=== PATIENT | male | born 1975 | race Caucasian/White ===

== ENCOUNTER 2019-07-28 18:18 | Inpatient (IN) | payer BC ==
[2019-07-28] MEDS: METOPROLOL TAR 50 MG TAB PO SCH ×2 (18:00→22:34)
[2019-07-28] MEDS ORDERED: ASPIRIN 81 MG CHEWABLE TABLET ONE (18:56)
[2019-07-28] MEDS ORDERED: NA CHLORIDE 0.9% 1,000 ML ONE (18:57)
[2019-07-28] MEDS ORDERED: METOPROLOL TAR 50 MG TAB ONE (19:03)
[2019-07-28 19:04] LABS: Absolute Lymphocytes (CBC) 1.4 K/uL (0.7-4.9); Basophils % 0.6 % (0-1.3); Hematocrit 43.4 % (39.6-49.0); Lymphocytes % 19.9 % (15.3-44.8); RBC Red Blood Cell Count 5.03 M/uL (4.33-5.43)
[2019-07-28] MEDS ORDERED: FAMOTIDINE 20 MG/2 ML VIAL IV ONE (19:04)
[2019-07-28] MEDS ORDERED: ENOXAPARIN 100 MG/ML SYR SQ ONE (19:04)
[2019-07-28 19:26] LABS: ALT/SGPT 35 U/L (12-78); AST/SGOT 24 U/L (15-37); Albumin 3.5 g/dL (3.4-5.0); Alkaline Phosphatase 54 U/L (45-117); BUN Blood Urea Nitrogen 16 mg/dL (7-18); Bicarbonate 27 mmol/L (21-32); Bilirubin Direct < 0.1 mg/dL (0-0.2); Bilirubin Total 0.3 mg/dL (0.2-1.0); Lipase 96 U/L (73-393); NT PRO-BNP 43 pg/mL (<125); Potassium 4.5 mmol/L (3.5-5.1); Protein, Total 7.7 g/dL (6.4-8.2); Sodium Level 133 mmol/L (136-145); Troponin (Emerg Dept Use Only) 0.34 ng/mL (0.0-0.045)
[2019-07-28 19:28] LABS: Glucose Level 475 mg/dL (74-106)
--- NOTE | 2019-07-28 19:36 | ER ---
Nurse's Notes [facility] Name: Foster Perry Age: 44 yrs Sex: Male : 1975 Arrival Date: 07/28/2019 Time: 18:18 Bed 2 Private MD: TERENCE ALVARADO Diagnosis: Non-ST elevation (NSTEMI) myocardial infarction;Type 2 diabetes mellitus-poorly controlled;Essential (primary) hypertension Presentation: 07/27 18:35 Chief complaint: Patient states: CP with SOB began at 0515 today. Coronavirus screen: ll1 Proceed with normal triage. Patient denies a cough. Patient reports shortness of breath or difficulty breathing. Patient denies measured and/or subjective temperature greater than 100.4F prior to today's visit. Patient denies travel on a cruise ship or to a country the [facility] currently lists as an affected area. Patient denies contact with known and/or suspected case of COVID-19. Ebola Screen: Patient denies travel to an Ebola-affected area in the 21 days before illness onset. Initial Sepsis Screen: Does the patient meet any 2 criteria? No. Patient's initial sepsis screen is negative. Does the patient have a suspected source of infection? No. Patient's initial sepsis screen is negative. Risk Assessment: Do you want to hurt yourself or someone else? Patient reports no desire to harm self or others. Onset of symptoms was July 28, 2019. 18:35 Method Of Arrival: Ambulatory ll1 18:35 Acuity: JOES 3 ll1 Historical: - Allergies: 18:37 No Known Allergies; ll1 - PMHx: 18:37 Diabetes - NIDDM; Hypothyroidism; enlarged heart; ll1 - PSHx: 18:37 Shoulder; ll1 - Immunization history:: Adult Immunizations up to date. - Social history:: Smoking status: Patient denies any tobacco usage or history of. Patient uses alcohol, only on a social basis. Patient/guardian denies using street drugs. - Family history:: not pertinent. Screenin:45 Abuse screen: Denies threats or abuse. Nutritional screening: No deficits noted. em Tuberculosis screening: No symptoms or risk factors identified. Fall Risk None identified. Assessment: 18:45 General: Appears in no apparent distress. comfortable, Behavior is calm, cooperative, em appropriate for age, Denies fever. Pain: Complains of pain in chest Pain does not radiate. Pain began. Neuro: Level of Consciousness is awake, alert, obeys commands, Oriented to person, place, time, situation, Appropriate for age. Cardiovascular: Reports chest pain, shortness of breath, Capillary refill < 3 seconds Patient's skin is warm and dry. Rhythm is irregular. Respiratory: Airway is patent Respiratory effort is even, unlabored, Respiratory pattern is regular, symmetrical. GI: Abdomen is flat, Patient currently denies nausea, vomiting. Derm: Skin is intact, is healthy with good turgor, Skin is pink, warm \T\ dry. Musculoskeletal: Capillary refill < 3 seconds, Range of motion: intact in all extremities. 20:07 Reassessment: Pt refused insulin and stated that he has a pump and would control it tl2 himself. Explained to pt about using a sliding scale per the doctors order but he was adamant about using his own pump. MD notified and patient understands risks. 21:00 Reassessment: Patient appears in no apparent distress at this time. Patient and/or tl2 family updated on plan of care and expected duration. Pain level reassessed. Patient is alert, oriented x 3, equal unlabored respirations, skin warm/dry/pink. Patient denies pain at this time. Vital Signs: 18:35 BP 164 / 94; Pulse 87; Resp 18; Temp 98.9; Pulse Ox 99% ; ll1 18:37 Pain 8/10; ll1 18:55 Weight 104.33 kg; em 20:34 BP 146 / 84; Pulse 68; Resp 24; Pulse Ox 100% on R/A; tl2 21:00 BP 135 / 91; Pulse 70; Resp 18; Pulse Ox 100% on R/A; tl2 Vitals: 20:34 Cardiac Rhythm Assessment Sinus rhythm. tl2 ED Course: 18:18 Patient arrived in ED. am2 18:19 TERENCE ALVARADO is Private Physician. am2 18:35 Guilherme Wray MD is Attending Physician. [facility] 18:36 Triage completed. ll1 18:36 Armando Carter, KENIA is Primary Nurse. em 18:37 Arm band placed on Patient placed in an exam room, on a stretcher. ll1 18:45 Patient maintains SpO2 saturation greater than 95% on room air. em 18:46 Patient has correct armband on for positive identification. Bed in low position. Call [facility] light in reach. Side rails up X 1. controller operations and hr manager on. Pulse ox on. NIBP on. 18:46 EKG done, by ED staff, reviewed by Guilherme Wray MD. [facility] 18:50 XRAY Chest (1 view) In Process Unspecified. EDMS 19:01 Initial lab(s) drawn, by dc, sent to lab. Inserted saline lock: 18 gauge in right [facility] antecubital area, using aseptic technique. Blood collected. 19:02 Lipase Sent. [facility] 19:02 Basic Metabolic Panel Sent. [facility] 19:02 CBC with Diff Sent. [facility] 19:02 LFT's Sent. [facility] 19:02 Magnesium Sent. [facility] 19:02 NT PRO-BNP Sent. [facility] 19:02 Troponin (emerg Dept Use Only) Sent. [facility] 19:34 Abbey Reina MD is Hospitalizing Provider. [facility] 21:50 No provider procedures requiring assistance completed. Patient admitted, IV remains in lp1 place. Administered Medications: 18:55 Drug: Aspirin Chewable Tablet 324 mg Route: PO; em 22:18 Follow up: Response: No adverse reaction tl2 19:06 Drug: NS 0.9% 1000 ml Route: IV; Rate: 125 ml/hr; Site: right antecubital; em 19:06 Drug: Lopressor (metoprolol TARTRATE) 50 mg Route: PO; em 22:18 Follow up: Response: No adverse reaction tl2 19:06 Drug: Lovenox 1 mg/kg Route: Sub-Q; Site: left lower abdomen; em 22:18 Follow up: Response: No adverse reaction tl2 19:07 Drug: Pepcid 20 mg Route: IVP; Site: right antecubital; em 22:17 Follow up: Response: No adverse reaction tl2 20:05 Not Given (Patient Refused; See chart): Insulin Regular Human 10 units IVP once tl2 20:05 Drug: PlaVIX 300 mg Route: PO; tl2 22:16 Follow up: Response: No adverse reaction tl2 20:05 Drug: Lopressor 5 mg {Note: HR: 93 BP 154/87.} Route: IVP; Site: left antecubital; tl2 22:16 Follow up: Response: No adverse reaction; Cardiac rhythm changed tl2 20:05 Drug: Lisinopril 10 mg Route: PO; tl2 22:16 Follow up: Response: No adverse reaction tl2 Outcome: 19:35 Decision to Hospitalize by Provider. janna 21:50 Condition: stable lp1 21:50 Instructed on the need for admit. 21:52 Admitted to Med/surg via wheelchair, room 219, with chart, Report called to KENIA Freeman lp1 22:15 Patient left the ED. tl2 Signatures: Dispatcher [employer] Guilherme Hathaway MD MD cha Munoz, Edgar, Marlee Pugh RN, RN RN lp1 Keke Luevano RN RN tl2 Deysi Moreno [facility] Chrissy Boyd Wilma Zimmerman RN RN ll1
--- NOTE | 2019-07-28 19:36 | EDPHYS ---
Physician Documentation [facility] Name: Foster Perry Age: 44 yrs Sex: Male : 1975 Arrival Date: 07/28/2019 Time: 18:18 Bed 2 Private MD: TERENCE ALVARADO ED Physician Guilherme Wray HPI: 07/27 18:48 This 44 yrs old Male presents to ER via Ambulatory with complaints of Chest janna Pain, Possible Cardiac Related. 18:48 The patient or guardian reports chest pain that is located primarily in the substernal janna area. Onset: just prior to arrival. The pain does not radiate. Associated signs and symptoms: Pertinent positives: nausea, shortness of breath. The chest pain is described as a pressure. Duration: The patient or guardian reports a single episode, that is still ongoing, but improving. Modifying factors: The symptoms are alleviated by nothing. the symptoms are aggravated by nothing. Severity of pain: At its worst the pain was moderate in the emergency department the pain is unchanged. The patient has experienced similar episodes in the past, a few times. Historical: - Allergies: 18:37 No Known Allergies; ll1 - PMHx: 18:37 Diabetes - NIDDM; Hypothyroidism; enlarged heart; ll1 - PSHx: 18:37 Shoulder; ll1 - Immunization history:: Adult Immunizations up to date. - Social history:: Smoking status: Patient denies any tobacco usage or history of. Patient uses alcohol, only on a social basis. Patient/guardian denies using street drugs. - Family history:: not pertinent. ROS: 18:48 Constitutional: Negative for fever, chills, and weight loss, Eyes: Negative for injury, janna pain, redness, and discharge, ENT: Negative for injury, pain, and discharge, Neck: Negative for injury, pain, and swelling, Abdomen/GI: Negative for abdominal pain, nausea, vomiting, diarrhea, and constipation, Back: Negative for injury and pain, : Negative for injury, bleeding, discharge, and swelling, MS/Extremity: Negative for injury and deformity, Skin: Negative for injury, rash, and discoloration, Neuro: Negative for headache, weakness, numbness, tingling, and seizure, Psych: Negative for depression, anxiety, suicide ideation, homicidal ideation, and hallucinations, Allergy/Immunology: Negative for hives, rash, and allergies, Endocrine: Negative for neck swelling, polydipsia, polyuria, polyphagia, and marked weight changes, Hematologic/Lymphatic: Negative for swollen nodes, abnormal bleeding, and unusual bruising. 18:48 Cardiovascular: Positive for chest pain. 18:48 Respiratory: Positive for shortness of breath, at rest. Exam: 18:48 Constitutional: This is a well developed, well nourished patient who is awake, alert, janna and in no acute distress. Head/Face: Normocephalic, atraumatic. Eyes: Pupils equal round and reactive to light, extra-ocular motions intact. Lids and lashes normal. Conjunctiva and sclera are non-icteric and not injected. Cornea within normal limits. Periorbital areas with no swelling, redness, or edema. ENT: Nares patent. No nasal discharge, no septal abnormalities noted. Tympanic membranes are normal and external auditory canals are clear. Oropharynx with no redness, swelling, or masses, exudates, or evidence of obstruction, uvula midline. Mucous membranes moist. Neck: Trachea midline, no thyromegaly or masses palpated, and no cervical lymphadenopathy. Supple, full range of motion without nuchal rigidity, or vertebral point tenderness. No Meningismus. Chest/axilla: Normal chest wall appearance and motion. Nontender with no deformity. No lesions are appreciated. Cardiovascular: Regular rate and rhythm with a normal S1 and S2. No gallops, murmurs, or rubs. Normal PMI, no JVD. No pulse deficits. Respiratory: Lungs have equal breath sounds bilaterally, clear to auscultation and percussion. No rales, rhonchi or wheezes noted. No increased work of breathing, no retractions or nasal flaring. Abdomen/GI: Soft, non-tender, with normal bowel sounds. No distension or tympany. No guarding or rebound. No evidence of tenderness throughout. Back: No spinal tenderness. No costovertebral tenderness. Full range of motion. Male : Normal genitalia with no discharge or lesions. Skin: Warm, dry with normal turgor. Normal color with no rashes, no lesions, and no evidence of cellulitis. MS/ Extremity: Pulses equal, no cyanosis. Neurovascular intact. Full, normal range of motion. Neuro: Awake and alert, GCS 15, oriented to person, place, time, and situation. Cranial nerves II-XII grossly intact. Motor strength 5/5 in all extremities. Sensory grossly intact. Cerebellar exam normal. Normal gait. Psych: Awake, alert, with orientation to person, place and time. Behavior, mood, and affect are within normal limits. Vital Signs: 18:35 BP 164 / 94; Pulse 87; Resp 18; Temp 98.9; Pulse Ox 99% ; ll1 18:37 Pain 8/10; ll1 18:55 Weight 104.33 kg; em 20:34 BP 146 / 84; Pulse 68; Resp 24; Pulse Ox 100% on R/A; tl2 21:00 BP 135 / 91; Pulse 70; Resp 18; Pulse Ox 100% on R/A; tl2 MDM: 18:35 Patient medically screened. janna 18:51 Differential diagnosis: abnormal EKG, acute myocardial infarction, coronary artery janna disease Cholelithiasis esophagitis, gastritis, gastroesophageal reflux disease (GERD), hiatal hernia, mitral valve prolapse, pancreatitis, stable angina, unstable angina. HEART Score: History: Slightly Suspicious (0), ECG: Non specific repolarization disturbance / LBTB / PM (1), Age: > 45 and < 65 years (1), Risk Factors: 1 or 2 risk factors (1), [DM]. The patient was given aspirin in the Emergency Department. HAL Risk Score: TOTAL SCORE = 0. Data reviewed: vital signs, nurses notes, lab test result(s), EKG, radiologic studies, plain films. Counseling: I had a detailed discussion with the patient and/or guardian regarding: the historical points, exam findings, and any diagnostic results supporting the discharge/admit diagnosis, the presence of at least one elevated blood pressure reading (>120/80) during this emergency department visit, lab results, radiology results, the need for further work-up and treatment in the hospital. 19:36 Data interpreted: monitoring and evaluation advisor: rate is 87 beats/min, Pulse oximetry: on room air is janna 99 %. Test interpretation: by ED physician or midlevel provider: ECG, plain radiologic studies. 19:42 ED course: pain free now, no sob, dw dr granados, agrees . [facility] 07/27 18:36 Order name: Basic Metabolic Panel; Complete Time: 19:32 [facility] 07/27 18:36 Order name: CBC with Diff; Complete Time: 19:32 [facility] 07/27 18:36 Order name: LFT's; Complete Time: 19:32 [facility] 07/27 18:36 Order name: Magnesium; Complete Time: 19:32 [facility] 07/27 18:36 Order name: NT PRO-BNP; Complete Time: 19:32 [facility] 07/27 18:36 Order name: Troponin (emerg Dept Use Only); Complete Time: 19:32 [facility] 07/27 18:36 Order name: Lipase; Complete Time: 19:32 [facility] 07/27 20:08 Order name: Glucose, Ancillary Testing [facility] 07/27 20:21 Order name: Basic Metabolic Panel [facility] 07/27 20:21 Order name: Basic Metabolic Panel [facility] 07/27 20:21 Order name: Lipid Profile [facility] 07/27 20:21 Order name: Lipid Profile [facility] 07/27 20:22 Order name: CBC with Automated Diff [facility] 07/27 20:22 Order name: CBC with Automated Diff [facility] 07/27 18:36 Order name: XRAY Chest (1 view) [facility] 07/27 18:36 Order name: EKG; Complete Time: 18:37 [facility] 07/27 20:22 Order name: CONS Physician Consult [facility] 07/27 20:22 Order name: Echo with Doppler [facility] 07/27 20:22 Order name: Troponin I [facility] 07/27 20:22 Order name: Troponin I [facility] 07/27 20:22 Order name: Troponin I [facility] 07/27 18:36 Order name: Cardiac monitoring; Complete Time: 18:46 [facility] 07/27 18:36 Order name: EKG - Nurse/Tech; Complete Time: 18:46 [facility] 07/27 18:36 Order name: IV Saline Lock; Complete Time: 19:03 [facility] 07/27 18:36 Order name: Labs collected and sent; Complete Time: 19:03 [facility] 07/27 18:36 Order name: O2 Per Protocol; Complete Time: 19:08 [facility] 07/27 18:36 Order name: O2 Sat Monitoring; Complete Time: 19:08 [facility] 07/27 20:22 Order name: Heart Healthy [facility] 07/27 20:22 Order name: EKG Electrocardiogram [facility] 07/27 20:22 Order name: EKG Electrocardiogram [facility] Administered Medications: 18:55 Drug: Aspirin Chewable Tablet 324 mg Route: PO; em 22:18 Follow up: Response: No adverse reaction tl2 19:06 Drug: NS 0.9% 1000 ml Route: IV; Rate: 125 ml/hr; Site: right antecubital; em 19:06 Drug: Lopressor (metoprolol TARTRATE) 50 mg Route: PO; em 22:18 Follow up: Response: No adverse reaction tl2 19:06 Drug: Lovenox 1 mg/kg Route: Sub-Q; Site: left lower abdomen; em 22:18 Follow up: Response: No adverse reaction tl2 19:07 Drug: Pepcid 20 mg Route: IVP; Site: right antecubital; em 22:17 Follow up: Response: No adverse reaction tl2 20:05 Not Given (Patient Refused; See chart): Insulin Regular Human 10 units IVP once tl2 20:05 Drug: PlaVIX 300 mg Route: PO; tl2 22:16 Follow up: Response: No adverse reaction tl2 20:05 Drug: Lopressor 5 mg {Note: HR: 93 BP 154/87.} Route: IVP; Site: left antecubital; tl2 22:16 Follow up: Response: No adverse reaction; Cardiac rhythm changed tl2 20:05 Drug: Lisinopril 10 mg Route: PO; tl2 22:16 Follow up: Response: No adverse reaction tl2 Disposition: 07/28/19 19:35 Hospitalization ordered by Abbey Granados for Inpatient Admission. Preliminary diagnosis are Non-ST elevation (NSTEMI) myocardial infarction, Type 2 diabetes mellitus - poorly controlled, Essential (primary) hypertension. - Bed requested for Telemetry/MedSurg (Inpatient). - Status is Inpatient Admission. tl2 - Condition is Fair. - Problem is new. - Symptoms have improved. Signatures: Dispatcher [employer] EDPR Romina Swenson RN RN mw Anderson, Corey, MD MD cha Munoz, Edgar, RN RN Keke Luevano RN RN tl2 Wilma Fry RN RN ll1 Corrections: (The following items were deleted from the chart) 20:55 19:35 Hospitalization Ordered by Abbey Granados MD for Inpatient Admission. Preliminary mw diagnosis is Non-ST elevation (NSTEMI) myocardial infarction; Type 2 diabetes mellitus - poorly controlled; Essential (primary) hypertension. Bed requested for Telemetry/MedSurg (Inpatient). Status is Inpatient Admission. Condition is Fair. Problem is new. Symptoms have improved. janna 22:15 20:55 07/28/2019 19:35 Hospitalization Ordered by Abbey Granados MD for Inpatient tl2 Admission. Preliminary diagnosis is Non-ST elevation (NSTEMI) myocardial infarction; Type 2 diabetes mellitus - poorly controlled; Essential (primary) hypertension. Bed requested for Telemetry/MedSurg (Inpatient). Status is Inpatient Admission. Condition is Fair. Problem is new. Symptoms have improved. mw
[2019-07-28] MEDS ORDERED: lisinopriL 10 MG TAB ONE (20:02)
[2019-07-28] MEDS ORDERED: METOPROLOL TARTRATE 5 MG/5 ML INJ IV ONE (20:02)
[2019-07-28] MEDS ORDERED: CLOPIDOGREL 75 MG TABLET ONE (20:02)
--- NOTE | 2019-07-28 20:04 | RAD REPORT ---
EXAM DESCRIPTION: RAD - Chest Single View - 07/28/2019 6:50 pm CLINICAL HISTORY: CHEST PAIN, shortness of breath COMPARISON: January 2012 TECHNIQUE: AP portable chest image was obtained 07/28/2019 6:50 pm . FINDINGS: Lungs are clear. Heart and vasculature are normal. No measurable pleural effusion and no p neumothorax. No acute bony abnormality seen. No acute aortic findings suspected. IMPRESSION: No acute cardiopulmonary process. No significant interval change.
[2019-07-28] MEDS ORDERED: ACETAMINOPHEN 500 MG TAB PO PRN (20:15)
[2019-07-28] MEDS ORDERED: MORPHINE 4 MG/ML SYR IV PRN (20:15)
[2019-07-28] MEDS ORDERED: ENOXAPARIN 100 MG/ML SYR SQ SCH (21:00)
[2019-07-28 22:30] VITALS: BMI 29.7
[2019-07-29 04:26] LABS: Absolute Lymphocytes (CBC) 2.1 K/uL (0.7-4.9); Basophils % 0.7 % (0-1.3); Lymphocytes % 32.4 % (15.3-44.8); RBC Red Blood Cell Count 4.89 M/uL (4.33-5.43)
[2019-07-29 04:45] LABS: Potassium 4.3 mmol/L (3.5-5.1)
[2019-07-29 04:47] LABS: Troponin I 8.85 ng/mL (0.0-0.045)
[2019-07-29] MEDS: Enoxaparin 120 MG/0.8 ML SYR SQ SCH ×3 (05:59→18:00)
[2019-07-29] MEDS ORDERED: NITROGLYCERIN 1 GM PKT TD ONE (06:00)
[2019-07-29] MEDS ORDERED: PRAMIPEXOLE 0.25 MG TAB PO PRN ×2 (08:25→20:14)
--- NOTE | 2019-07-29 08:31 | P.HP ---
Certification for Inpatient Patient admitted to: Inpatient With expected LOS: >2 Midnights Patient will require the following post-hospital care: None Practitioner: I am a practitioner with admitting privileges, knowledge of patient current condition, hospital course, and medical plan of care. Services: Services provided to patient in accordance with Admission requirements found in Title 42 Section 412.3 of the Code of Federal Regulations Patient History Date of Service: 07/28/19 Reason for admission: Non STEMI History of Present Illness: Patient is a 44-year-old gentleman who came into the hospital with chest pain. Pain was mainly sternal region. This started a couple of days ago. The was not subsiding so he came to the ER. In the ER patient was found have an elevated troponin level. Patient was given Plavix, aspirin, anti coagulation. Cardiology was consulted. Patient's symptoms have subsided. He is not having any more chest pain. He will be admitted to the hospital for further evaluation. He will probably require a heart catheterization. He does have a family history of heart disease. His father in his 40s with a myocardial infarction. Patient also has multiple risk factors including diabetes and hypertension. Patient normally is in good health and he does do his best to take care of himself. He will be admitted for further cardiac workup. Allergies No Known Allergies Allergy (Verified 07/28/19 22:04) Home Medications: Canagliflozin [Invokana] 300 mg PO DAILY 07/28/19 Evolocumab [Repatha Sureclick] 140 mg IM DAILY 07/28/19 Levothyroxine Sodium [Tirosint] 1 cap PO 0530 07/28/19 Lisinopril [Zestril] 10 mg PO BEDTIME 07/28/19 Pitavastatin Calcium [Livalo] 2 mg PO DAILY 07/28/19 Pramipexole [Mirapex*] 0.125 mg PO BID PRN 07/28/19 - Past Medical/Surgical History Has patient received pneumonia vaccine in the past: No Diabetic: No -: HTN -: DM -: hypothyroidsm -: shoulder sx - Family History Father Family History: Reviewed- Non-Contributory - Social History Smoking Status: Never smoker Alcohol use: Yes CD- Drugs: No Caffeine use: Yes Place of Residence: Home Review of Systems 10-point ROS is otherwise unremarkable Physical Examination - Vital Signs Temperature: 97.0 F Blood Pressure: 137/77 Pulse: 76 Respirations: 16 Pulse Ox (%): 100 - Physical Exam General: Alert, In no apparent distress, Oriented x3 HEENT: Atraumatic, PERRLA, Mucous membr. moist/pink, EOMI, Sclerae nonicteric Neck: Supple, 2+ carotid pulse no bruit, No LAD, Without JVD or thyroid abnormality Respiratory: Clear to auscultation bilaterally, Normal air movement Cardiovascular: Regular rate/rhythm, Normal S1 S2, No murmurs Gastrointestinal: Normal bowel sounds, Soft and benign, Non-distended, No tenderness Musculoskeletal: No clubbing, No swelling, No tenderness Integumentary: No rashes Neurological: Normal gait, Normal speech, Normal strength at 5/5 x4 extr, Normal tone, Sensation intact, Cranial nerves 3-12 intact, Normal affect Lymphatics: No axilla or inguinal lymphadenopathy - Studies Laboratory Data (last 24 hrs) 07/28/19 18:56: WBC 7.0, Hgb 13.8, Hct 43.4, Plt Count 257 07/28/19 18:56: Sodium 133 L, Potassium 4.5, BUN 16, Creatinine 1.24, Glucose 475 H*, Magnesium 2.0, Total Bilirubin 0.3, AST 24, ALT 35, Alkaline Phosphatase 54, Lipase 96 Assessment & Plan - Problems (Diagnosis) (1) Acute coronary syndrome Current Visit: Yes Status: Acute (2) Hypertension Current Visit: Yes Status: Acute Qualifiers: Hypertension type: essential hypertension Qualified Code(s): I10 - Essential (primary) hypertension (3) Type 2 diabetes mellitus Current Visit: Yes Status: Acute Qualifiers: Diabetes mellitus custodial insulin use: with custodial use - Plan 1. Serial troponins and EKG 2. Cardiology consultation 3. Echocardiogram and possible cardiac catheterization pending cardiology evaluation 4. Anti-platelet therapy, anti coagulation, beta-deepak, statin, and O2 as needed 5. IV morphine for pain 6. Nitro p.r.n. 7. GI and DVT prophylaxis Discharge Plan: Home Plan to discharge in: Greater than 2 days - Advance Directives Does patient have a Living Will: No Does patient have a Durable POA for Healthcare: No - Code Status/Comfort Care Code Status Assessed: Yes Code Status: Full Code Critical Care: No Time Spent Managing PTS Care (In Minutes): 45
--- NOTE | 2019-07-29 08:33 | P.PN ---
Subjective Date of Service: 07/29/19 Patient clinically doing well with no new complaints. Chest pain is improving. Review of Systems 10-point ROS is otherwise unremarkable Physical Examination - Vital Signs Temperature: 97.0 F Blood Pressure: 137/77 Pulse: 76 Respirations: 16 Pulse Ox (%): 100 - Physical Exam General: Alert, In no apparent distress, Oriented x3 Respiratory: Clear to auscultation bilaterally, Normal air movement Cardiovascular: Regular rate/rhythm, Normal S1 S2, No murmurs Gastrointestinal: Normal bowel sounds, Soft and benign, Non-distended, No tenderness Musculoskeletal: No clubbing, No swelling, No tenderness Integumentary: No rashes Neurological: Normal speech, Normal tone, Sensation intact, Cranial nerves 3-12 intact, Normal affect - Studies Laboratory Data (last 24 hrs) 07/28/19 18:56: WBC 7.0, Hgb 13.8, Hct 43.4, Plt Count 257 07/28/19 18:56: Sodium 133 L, Potassium 4.5, BUN 16, Creatinine 1.24, Glucose 475 H*, Magnesium 2.0, Total Bilirubin 0.3, AST 24, ALT 35, Alkaline Phosphatase 54, Lipase 96 Medications List Reviewed: Yes Assessment & Plan - Problems (Diagnosis) (1) Acute coronary syndrome Current Visit: Yes Status: Acute (2) Hypertension Current Visit: Yes Status: Acute Qualifiers: Hypertension type: essential hypertension Qualified Code(s): I10 - Essential (primary) hypertension (3) Type 2 diabetes mellitus Current Visit: Yes Status: Acute Qualifiers: Diabetes mellitus senior care insulin use: with senior care use - Plan Continue with current plan of care as mentioned below 1. Troponins were elevated. Patient will probably need to be scheduled for heart catheterization in the morning 2. Cardiology consultation Pending 3. Echocardiogram and possible cardiac catheterization pending cardiology evaluation 4. Anti-platelet therapy, anti coagulation, beta-deepak, statin, and O2 as needed 5. IV pain medication as tolerated 6. Nitro paste 7. GI and DVT prophylaxis Discharge Plan: Home Plan to discharge in: Greater than 2 days - Advance Directives Does patient have a Living Will: No Does patient have a Durable POA for Healthcare: No - Code Status/Comfort Care Code Status: Full Code Critical Care: No Time Spent Managing PTS Care (In Minutes): 35
--- NOTE | 2019-07-29 08:39 | EKG ---
Test Date: 2019-07-28 Test Time: 18:41:03 Endoscopic Technician: OSWALD MEASUREMENT RESULTS: Intervals: Rate: 83 VT: 146 QRSD: 88 QT: 346 QTc: 406 [place]: P: 72 VT: 146 QRS: 68 T: -26 INTERPRETIVE STATEMENTS: Sinus rhythm with fusion complexes ST & T wave abnormality, consider inferior ischemia Abnormal ECG Compared to ECG 02/06/2012 17:02:11 Fusion complex(es) now present ST (T wave) deviation now present Possible ischemia now present Sinus arrhythmia no longer present Electronically Signed On 07-29-19 08:38:33 CDT by Daniel Atkinson
[2019-07-29] MEDS: HOME MED 1 EA UNK (Canagliflozin [Invokana] 300 MG) PO SCH (09:00)
[2019-07-29] MEDS ORDERED: EVOLOCUMAB 140 MG IM SCH (09:00)
[2019-07-29] MEDS ORDERED: PITAVASTATIN CALCIUM 2 MG PO SCH (09:00)
[2019-07-29] MEDS ORDERED: NITROGLYCERIN 1 GM PKT TD SCH (09:00)
[2019-07-29] MEDS: CLOPIDOGREL 75 MG TABLET PO SCH (09:17)
[2019-07-29] MEDS: METOPROLOL TAR 50 MG TAB PO SCH ×2 (09:17→21:22)
[2019-07-29] MEDS: ATORVASTATIN 10 MG TAB PO SCH (09:17)
[2019-07-29] MEDS: ASPIRIN EC 81 MG TAB PO SCH (09:17)
--- NOTE | 2019-07-29 15:02 | CON ---
Date of Consultation: 07/29/2019 Reason For Consultation: [id number] myocardial infarction. History Of Present Illness: Mr. Perry is a 44-year-old white male with history of diabetes, hyperten june, dyslipidemia, and hypothyroidism. No previous cardiac history before. Came in with substernal chest pressure, radiating to both shoulders with some nausea and diaphoresis. No shortness of breat h. Denied PND, orthopnea, pedal edema, palpitations, or syncope. He denied any fever, chills, or co ugh. Symptoms occurred yesterday, lasted for about an hour when he got to work. He was found to hav e a troponin of 8.85. His glucose was 475. His chest x-ray was negative. EKG showed nonspecific ch anges, possible inferior ischemia. He is pain-free now. He is on Lovenox and beta-blockers and aspi rin at this point. He is also on Plavix now. Past Medical History: As stated above. Allergies: NONE. Review of Systems: Negative. Social History: Negative. Family History: Noncontributory. Medications At Home: Invokana, Repatha, Synthroid, and lisinopril. Physical Examination: General: He is very pleasant. No acute distress. Vital Signs: Stable. Afebrile. HEENT: Negative. Neck: Supple. No bruit. Chest: Clear. Cardiac: Revealed a regular rhythm and rate. No murmurs, gallops, or rubs. Abdomen: Benign. Extremities: Revealed no clubbing, cyanosis, or edema. Diagnostic Data: As stated earlier. Chest x-ray was negative. His creatinine is 1.01. Impression And Plan: Myocardial infarction with abnormal EKG, elevated troponin of 8.85 in a patient with diabetes, hypertension, dyslipidemia. He has also hypothyroidism that is well controlled. His diabetes is poorly controlled, although the glucose elevation may be secondary to myocardial infarct ion. He is on Invokana, Synthroid, lisinopril, and Repatha. We will continue those. He is also on aspirin, Plavix, and beta-blockers as well as Lovenox now, which I agree with. Patient needs a left heart catheterization to define his coronary anatomy. The risk and the benefits of the procedure wer e discussed with him and he agreed to proceed. We will do that tomorrow morning and then make decisi on regarding on the catheterization findings. WINSTON/GRISELDA Voice ID: [id number] Report ID: [id number]
[2019-07-29] MEDS ORDERED: PRAMIPEXOLE 0.25 MG TAB ONE (21:26)
[2019-07-29] MEDS: ALPRAZOLAM 0.25 MG TABLET PO PRN (22:06)
[2019-07-30] MEDS: LEVOTHYROXINE SOD 0.025 MG TAB PO SCH (05:30)
[2019-07-30] MEDS: LEVOTHYROXINE SOD 0.112 MG TAB PO SCH (05:30)
[2019-07-30] MEDS ORDERED: LEVOTHYROXINE SODIUM PO SCH (05:30)
[2019-07-30] MEDS: METOPROLOL TAR 50 MG TAB PO SCH ×2 (05:56→20:30)
[2019-07-30] MEDS: ASPIRIN EC 81 MG TAB PO SCH (05:56)
[2019-07-30] MEDS: CLOPIDOGREL 75 MG TABLET PO SCH (05:56)
[2019-07-30] MEDS: Enoxaparin 120 MG/0.8 ML SYR SQ SCH ×2 (06:00→17:18)
[2019-07-30] MEDS ORDERED: HEPA 1000U/500MLS 2,000 UNIT/1,000 ML BAG IV ONE (06:05)
[2019-07-30] MEDS ORDERED: NICARDIPINE HCL 25 MG/10 ML IV ONE (07:57)
[2019-07-30] MEDS ORDERED: HEPARIN 5000 UNIT/ML 1 ML VIAL ONE ×2 (07:57→08:17)
[2019-07-30] MEDS ORDERED: FENTANYL CITR 100 MCG/2 ML ONE (07:57)
[2019-07-30] MEDS ORDERED: ATROPINE SULF 1 MG/10 ML SYR IV ONE (07:57)
[2019-07-30] MEDS ORDERED: MIDAZOLAM HCL 2 MG/2 ML INJ ONE ×2 (07:57→08:46)
[2019-07-30] MEDS ORDERED: NA CHLORIDE 0.9% 0 ML ONE (07:58)
[2019-07-30] MEDS ORDERED: NA CHLORIDE 0.9% 500 ML ONE ×2 (08:31→09:53)
[2019-07-30] MEDS: HOME MED 1 EA UNK (Canagliflozin [Invokana] 300 MG) PO SCH (09:00)
[2019-07-30] MEDS ORDERED: HEPA 1000U/500MLS 1,000 UNIT/500 ML BAG IV ONE (09:12)
[2019-07-30] MEDS ORDERED: ACETYLCYST 20% 4 ML VIAL IH ONE (10:25)
[2019-07-30] MEDS ORDERED: CLOPIDOGREL 75 MG TABLET ONE (10:27)
--- NOTE | 2019-07-30 11:50 | P.PN ---
Subjective Date of Service: 07/30/19 Primary Care Provider: Dr. Romano Chief Complaint: Non STEMI Subjective: Improving, Doing well Physical Examination - Vital Signs Temperature: 97.7 F Blood Pressure: 144/84 Pulse: 78 Respirations: 20 Pulse Ox (%): 98 - Physical Exam General: Alert, In no apparent distress, Oriented x3, Cooperative HEENT: Atraumatic Neck: Supple Respiratory: Clear to auscultation bilaterally, Normal air movement Cardiovascular: Normal pulses, Regular rate/rhythm Gastrointestinal: Normal bowel sounds Musculoskeletal: No erythema, No tenderness, No warmth Integumentary: No tenderness/swelling, No erythema, No warmth, No cyanosis Neurological: Normal speech, Normal strength at 5/5 x4 extr, Normal tone, Normal affect - Studies Medications List Reviewed: Yes Assessment & Plan Discharge Plan: Home Plan to discharge in: 24 Hours Physician Review Additional Text: Impression: Chest pain secondary to acute Coronary Syndrome status post heart catheterization with 90%stenosis of the OM with stent placement and moderate LAD disease Hypertension Diabetes mellitus type 2 Hyperlipidemia Hypothyroidism Plan: Chest pain secondary to acute Coronary Syndrome status post heart catheterization with 90%stenosis of the OM with stent placement and moderate LAD disease: Patient had heart catheterization today. Case discussed with cardiology-Dr. Kirkland who performed the procedure. He mentioned patient had difficult anatomy. Patient found to have 90% stenosis of the OM. Stent was placed. Patient also had moderate LAD disease. Cardiology plans to address this as an outpatient. Patient required moderate dose of contrast, therefore patient will get bolus of fluid along with IV fluids and Mucomyst. This was discussed. Will need to recheck lab-BMP tomorrow. There is a possibility patient may be able to be discharge as early as tomorrow. Await further recommendations from cardiology. Continue current medications at this time. The hospitalist team will take over tomorrow. I will go over the plan of care with him. Hypertension: Continue current medication-metoprolol. Will monitor and adjust appropriately. Diabetes mellitus type 2: Continue Accu-Cheks and sliding scale. Will discontinue Invokana at this time. Will recommend to discontinue Invokana due to contrast given. Will check A1c in determine what other options patient may get at discharge. Hyperlipidemia: Continue current medication-Lipitor and Repatha. Hypothyroidism: Continue current medication. Time Spent Managing Pts Care (In Minutes): 55
[2019-07-30] MEDS ORDERED: ACETYLCYST 20% 800 MG/4 ML VIAL PO ONE (12:00)
[2019-07-30] MEDS: ATORVASTATIN 10 MG TAB PO SCH (13:51)
[2019-07-30] MEDS: NA CHLORIDE 0.9% 1,000 ML IV SCH (13:52)
[2019-07-30] MEDS: ALPRAZOLAM 0.25 MG TABLET PO PRN (20:31)
[2019-07-30] MEDS ORDERED: lisinopriL 10 MG TAB PO SCH (21:00)
--- NOTE | 2019-07-30 21:09 | OP ---
Date of Procedure: 07/30/2019 Surgeon: BAKARI LOUISE Senior Specialist: Dr. Bakari Louise. Procedure Performed: 1. Selective coronary angiogram. 2. Left heart catheterization. 3. Percutaneous coronary intervention of severe first OM branch stenosis using a 2.75 x 20 mm Synergy drug-eluting stent overlapped by a 2.5 x 60 mm Synergy drug-eluting stent. The lesion length is 18 mm. HAL-3 flow before and after percutaneous coronary intervention and 0% residual stenosis post percutaneous coronary intervention. Access right radial artery 6-Cymro closed with TR band. Indication: NTEMI. Advanced Manufacturing Consultant: Daniel Atkinson M.D. Findings: 1. Severe OM stenosis, first branch, likely culprit for the FL. 2. Moderate mid LAD disease. He will need further evaluation with either stress test as FFR was not available in this label tacker. It is a focal lesion, can be stented at a later time if needed. 3. LVEDP of 14 mmHg. Complications: None. Bleeding: Less than 10 mL. Description Of Procedure: Patient was brought to the label tacker, prepped and draped in usual sterile fashion and incremental doses of Versed and fentanyl were given to achieve adequate amount of sedation. Then, right radial access was obtained using the pediatric micropuncture kit, 6-Cymro sheath was placed and we advanced the [place] catheter over a J-wire into the aortic root and did selective engagement of left main coronary artery, then the right main coronary artery and standard views were obtained and we moved to the interventional part. Intervention Details: Throughout the procedure, heparin was given intravenously to achieve ACT level above 250 throughout the procedure and we inserted EBU 3.5 into the aortic root over the guidewire, engaged the left main selectively. Then we used a run-through wire to cross the lesion of the first OM. This was subsequently ballooned using a 2.5 x 20 mm noncompliant balloon. Lesion was heavily calcified and tortuous and we used a 2.5 x 50 mm NC balloon and subsequently we placed a 2.75 x 20 mm Synergy drug-eluting stent and postdilated the proximal part using 3.0 x 50 mm NC balloon. Post stent placement, there was dissection at the edge of the stent, so placed another 2.5 x 60 mm Synergy drug- eluting stent and dissection completely sealed. However, the second OM branch closed off due to plaque shift. This was wired using an another run-through wire and then we used 1.5 x 20 mm noncompliant balloon and the branch was opened successfully. The patient was bolused with 500 mL of normal saline during the procedure and hemodynamically clinically is stable, has no chest pain. After final picture was satisfactory, the wires and the sheath was removed and a TR band was placed without complications. Impression: 1. Severe first OM stenosis, likely the culprit of the myocardial infarction. 2. Moderate LAD disease and significant diagonal branch disease is very small. At this point medical management is recommended and to further stratify using stress tests to evaluate the need for further intervention in the future as FFR was not available in this label tacker. Recommendations: 1. Patient was loaded with 300 mg of Plavix. Continue Plavix 75 mg daily at least for 1 year and aspirin 81 mg daily as well as statin. 2. Obtain echocardiogram. 3. Hydrate using normal saline 100 mL/hour for the next 12 hours. /GRISELDA Voice ID: [id number] Report ID: [id number] PADMINI
[2019-07-31] MEDS: NA CHLORIDE 0.9% 1,000 ML IV SCH (00:02)
[2019-07-31 04:59] LABS: Potassium 4.3 mmol/L (3.5-5.1)
[2019-07-31] MEDS: LEVOTHYROXINE SOD 0.025 MG TAB PO SCH (05:30)
[2019-07-31] MEDS: LEVOTHYROXINE SOD 0.112 MG TAB PO SCH (05:30)
[2019-07-31] MEDS: Enoxaparin 120 MG/0.8 ML SYR SQ SCH (06:05)
[2019-07-31 08:17] VITALS: O2SAT 99
[2019-07-31] MEDS: ASPIRIN EC 81 MG TAB PO SCH (08:23)
[2019-07-31] MEDS: CLOPIDOGREL 75 MG TABLET PO SCH (08:23)
[2019-07-31] MEDS: ATORVASTATIN 10 MG TAB PO SCH (08:24)
[2019-07-31] MEDS: METOPROLOL TAR 50 MG TAB PO SCH (08:24)
[2019-07-31 08:25] VITALS: BP 135/64
[2019-07-31 08:41] VITALS: TEMP 96.7
--- NOTE | 2019-07-31 09:54 | P.DS ---
Admission Date: 07/28/19 Discharge Date: 07/31/19 Primary Care Provider: Dr. Romano Disposition: ROUTINE DISCHARGE Discharge Condition: GOOD Reason for Admission: Non STEMI - Problems (1) Acute coronary syndrome Current Visit: Yes Status: Acute Hospital Course: Meir is a 44-year-old male with a past medical history of hypertension who was admitted to the hospital with chest pain. Found to have ACS and underwent a PCI with a stent placement to obtuse marginal artery. He tolerated the procedure well. He will be discharged on dual anti-platelet therapy. Patient understands that he has to be on this therapy consecutively for a year. Vital Signs/Physical Exam: Temp Pulse Resp BP Pulse Ox 96.7 F L 80 18 135/64 99 07/31/19 08:00 07/31/19 08:24 07/31/19 08:00 07/31/19 08:24 07/31/19 08:00 General: Alert, In no apparent distress, Cooperative HEENT: Atraumatic, Normocephalic Neck: Supple Respiratory: Clear to auscultation bilaterally, Normal air movement Cardiovascular: No edema, Regular rate/rhythm, Normal S1 S2 Gastrointestinal: Normal bowel sounds, Soft and benign Musculoskeletal: No clubbing, No swelling, No contractures, No erythema, No tenderness, No warmth Integumentary: No rashes, No breakdown, No significant lesion, No tenderness/swelling, No erythema, No warmth, No cyanosis Neurological: Normal gait, Normal speech, Normal strength at 5/5 x4 extr Laboratory Data at Discharge: WBC 6.4 K/uL (4.3-10.9) 07/29/19 03:44 Hgb 13.6 g/dL (13.6-17.9) 07/29/19 03:44 Hct 42.0 % (39.6-49.0) 07/29/19 03:44 Plt Count 258 K/uL (152-406) 07/29/19 03:44 Sodium 139 mmol/L (136-145) 07/31/19 04:15 Potassium 4.3 mmol/L (3.5-5.1) 07/31/19 04:15 BUN 15 mg/dL (7-18) 07/31/19 04:15 Creatinine 1.11 mg/dL (0.55-1.3) 07/31/19 04:15 Glucose 118 mg/dL (74-106) H 07/31/19 04:15 Magnesium 2.0 mg/dL (1.8-2.4) 07/31/19 04:15 Total Bilirubin 0.3 mg/dL (0.2-1.0) 07/28/19 18:56 AST 24 U/L (15-37) 07/28/19 18:56 ALT 35 U/L (12-78) 07/28/19 18:56 Alkaline Phosphatase 54 U/L (45-117) 07/28/19 18:56 Troponin I 8.85 ng/mL (0.0-0.045) H* D 07/29/19 03:44 Triglycerides 103 mg/dL (<150) 07/29/19 03:44 Cholesterol 166 mg/dL (<200) 07/29/19 03:44 HDL Cholesterol 59 mg/dL (40-60) 07/29/19 03:44 Cholesterol/HDL Ratio 2.81 07/29/19 03:44 Lipase 96 U/L (73-393) 07/28/19 18:56 Home Medications: Evolocumab [Repatha Sureclick] 140 mg IM SEECOM 07/28/19 Levothyroxine Sodium [Tirosint] 1 cap PO 0530 07/28/19 Lisinopril [Zestril] 10 mg PO BEDTIME 07/28/19 Pitavastatin Calcium [Livalo] 2 mg PO DAILY 07/28/19 ALPRAZolam [Xanax*] 0.25 mg PO TID PRN tab 07/31/19 Clopidogrel Bisulfate [Plavix*] 75 mg PO DAILY #0 tablet 07/31/19 Levothyroxine [Synthroid*] 0.112 mg PO 0530 tab 07/31/19 Metoprolol Tartrate [Lopressor*] 25 mg PO BID tab 07/31/19 Pramipexole [Mirapex*] 0.25 mg PO BIDP PRN tab 07/31/19 Diet: AHA
--- NOTE | 2019-08-01 06:26 | PN ---
Date of Progress Note: 07/31/2019 History Of Present Illness: Mr. Perry had came in with a non-ST elevation myocardial infarction, tro ponin of 8. On 07/30/2019, heart catheterization was performed by Dr. Kirkland. He underwent a stent of his obtuse marginal. He also was found to have about a 50% LAD stenosis. Overnight, he has done well. He has no complaint. His right wrist site of catheter entry was intact. His vital signs were stable. He was afebrile. He was in sinus rhythm. His chest is clear. We will plan to send him ho me today on his home medications plus Plavix. He does take statins, beta-blockers at home. He also will be on aspirin. I will plan to see him in the next week or 2. He does need a stress test in the near future to see if his LAD stenosis is significant. WINSTON/GRISELDA Voice ID: [id number] Report ID: [id number]
== END 2019-07-31 10:26 | disposition home or self-care (01) | DRG 247 ==
LOC: ER 18:18 → ERHOLD 20:16 → 2ND 21:54
PROVIDERS: ADMIT Hospitalist; ATTEND Family Medicine
PROC: 027035Z Dilation of Coronary Artery, One Artery with Two Drug-eluting Intraluminal Devices, Percutaneous Approach (ICD-10-PCS; principal; 2019-07-30)
PROC: 4A023N7 Measurement of Cardiac Sampling and Pressure, Left Heart, Percutaneous Approach (ICD-10-PCS; 2019-07-30)
PROC: B2111ZZ Fluoroscopy of Multiple Coronary Arteries using Low Osmolar Contrast (ICD-10-PCS; 2019-07-30)
DX: I21.4 Non-ST elevation (NSTEMI) myocardial infarction (principal); E11.9 Type 2 diabetes mellitus without complications; I10 Essential (primary) hypertension; E78.5 Hyperlipidemia, unspecified; E03.9 Hypothyroidism, unspecified; Z79.890 Hormone replacement therapy; Z79.899 Other long term (current) drug therapy; Z79.4 Long term (current) use of insulin
CPT/HCPCS: 36415; 71045; 80048; 80061; 80076; 82947; 83036; 83690; 83735; 83880; 84484; 85025; 85347; 92920; 92928; 93005; 93458; 96372; 96374; 96375; 99285; C1725; C1893; J1644; J1650; J2250; J3010; J7030; J7040

== ENCOUNTER 2021-01-27 00:02 | Emergency (ER) | payer BC ==
[2021-01-27] MEDS ORDERED: FAMOTIDINE 20 MG/2 ML VIAL IV ONE (00:17)
[2021-01-27] MEDS ORDERED: DIPHENHYDRAMINE 50 MG/ML VIAL ONE (00:17)
[2021-01-27 00:45] LABS: Protime INR 0.95
[2021-01-27 00:48] LABS: Absolute Lymphocytes (CBC) 2.2 K/uL (0.7-4.9); Basophils % 1.4 % (0-1.3); Hematocrit 43.7 % (39.6-49.0); Lymphocytes % 33.8 % (15.3-44.8); RBC Red Blood Cell Count 5.39 M/uL (4.33-5.43)
[2021-01-27 00:58] LABS: ALT/SGPT 33 U/L (12-78); AST/SGOT 24 U/L (15-37); Albumin 3.5 g/dL (3.4-5.0); Alkaline Phosphatase 48 U/L (45-117); BUN Blood Urea Nitrogen 20 mg/dL (7-18); Bicarbonate 26 mmol/L (21-32); Bilirubin Direct < 0.1 mg/dL (0-0.2); Bilirubin Total 0.2 mg/dL (0.2-1.0); Glucose Level 162 mg/dL (74-106); Magnesium 2.2 mg/dL (1.8-2.4); NT PRO-BNP 7 pg/mL (<125); Potassium 3.9 mmol/L (3.5-5.1); Protein, Total 7.6 g/dL (6.4-8.2); Sodium Level 139 mmol/L (136-145); Troponin (Emerg Dept Use Only) < 0.02 ng/mL (0.0-0.045)
--- NOTE | 2021-01-27 01:45 | ER ---
Nurse's Notes [facility] Name: Foster Prery Age: 45 yrs Sex: Male : 1975 Arrival Date: 01/27/2021 Time: 00:06 Bed 7 Private MD: Diagnosis: Acute tonsillitis, unspecified Presentation: 01/27 00:13 Chief complaint: Patient states: feeling like my throat closing up at night, and rash tw5 across my chest. Coronavirus screen: Vaccine status: Patient reports receiving the 2nd dose of the covid vaccine. Date April 2020. Ebola Screen: Patient negative for fever greater than or equal to 101.5 degrees Fahrenheit, and additional compatible Ebola Virus Disease symptoms Patient denies exposure to infectious person. Patient denies travel to an Ebola-affected area in the 21 days before illness onset. Initial Sepsis Screen: Does the patient meet any 2 criteria?. 00:13 Method Of Arrival: Ambulatory tw5 00:13 Initial Sepsis Screen: Does the patient have a suspected source of infection? No. tw5 Patient's initial sepsis screen is negative. Risk Assessment: Do you want to hurt yourself or someone else? Patient reports no desire to harm self or others. Onset of symptoms is unknown. 00:13 Acuity: JOSE 3 tw5 Triage Assessment: 00:14 General: Appears in no apparent distress. Behavior is calm, cooperative, anxious. tw5 Respiratory: Reports shortness of breath at rest Onset: The symptoms/episode began/occurred past two weeks, the patient has mild shortness of breath. Historical: - Allergies: 00:14 No Known Allergies; tw5 - Home Meds: 00:14 Temitope Chewable Aspirin 81 mg oral chew 1 tab once daily [Active]; Tirosint 150 mcg oral tw5 cap 1 cap once daily for hypothyroidism [Active]; lisinopril 10 mg Oral tab 1 tab once daily [Active]; pramipexole 0.25 mg oral tab 1 tab [Active]; repatha 140 every other week [Active]; Zyrtec 10 mg Oral tab 1 tab once daily [Active]; testosterone 10 mg 1 shot a week [Active]; - PMHx: 00:14 Diabetes - NIDDM; Enlarged Heart; Hypothyroidism; NV; heart stents x 2; tw5 - PSHx: 00:14 right shoulder; tw5 - Immunization history:: Client reports receiving the 2nd dose of the Covid vaccine, Flu vaccine is up to date. - Social history:: Smoking status: Patient denies any tobacco usage or history of. Screenin:21 Abuse screen: Denies threats or abuse. Denies injuries from another. Nutritional tw5 screening: No deficits noted. Tuberculosis screening: No symptoms or risk factors identified. Fall Risk None identified. No fall in past 12 months (0 pts). Assessment: 00:11 General: Reports " I have been having these problems for a couple of weeks. I am fine tw5 during the day, but once lie down I feel like my throat is closing off. I also get red all across my chest.". General: Reports " I have been taking zyrtec, and I even used afrin. I feel like once I try and go to sleep my nose even closes up.". Pain: Denies pain. 00:22 General: Reports " The feeling like my throat is closing up is worse when I am laying tw5 flat, but I can feel it like even just sitting up here with my head back.". Cardiovascular: Rhythm is regular. Respiratory: Airway is patent Trachea midline Respiratory effort is even, unlabored, 00:54 Reassessment: Patient appears in no apparent distress at this time. No changes from tw5 previously documented assessment. Vital Signs: 00:13 BP 166 / 84; Pulse 91; Resp 18; Pulse Ox 100% on R/A; Weight 111.13 kg; Height 6 ft. 3 tw5 in. (190.50 cm); Pain 0/10; 00:54 BP 150 / 97; Pulse 85; Resp 20; Pulse Ox 96% on R/A; Pain 0/10; tw5 01:58 BP 143 / 81; Pulse 80; Resp 20; Temp 98.2; Pulse Ox 100% on R/A; Pain 0/10; tw5 00:13 Body Mass Index 30.62 (111.13 kg, 190.50 cm) tw5 ED Course: 00:06 Patient arrived in ED. ag3 00:08 Michael Dunlap PA is PHCP. jmm 00:08 Roshan Berry MD is Attending Physician. jmm 00:11 Kiarra Morrison is Primary Nurse. tw5 00:21 Triage completed. tw5 00:21 Patient has correct armband on for positive identification. Placed in gown. Bed in low tw5 position. Call light in reach. Side rails up X 1. environmental monitoring specialist on. Pulse ox on. NIBP on. Door closed. Noise minimized. Lights dimmed. Moved to private room. Warm blanket given. Verbal reassurance given. 00:22 Initial lab(s) drawn, by ED staff, sent to lab. Inserted saline lock: 18 gauge in right tw5 antecubital area, using aseptic technique. 00:24 Basic Metabolic Panel Sent. tw5 00:24 CBC with Diff Sent. tw 00:25 Basic Metabolic Panel Sent. tw 00:25 CBC with Automated Diff Sent. tw 00:25 LFT's Sent. tw 00:25 Magnesium Sent. tw 00:25 NT PRO-BNP Sent. 00:25 PT-INR Sent. tw 00:25 Troponin (emerg Dept Use Only) Sent. tw5 00:40 CT Soft Tissue Neck W/contr Sent. df1 00:40 CT Chest W/ Con Sent. df1 00:40 Chest Single View XRAY Sent. df1 00:42 Chest Single View XRAY In Process Unspecified. EDMS 00:[address]. tw5 00:54 Resting quietly. Awaiting lab results. tw5 00:59 CT Soft Tissue Neck W/contr In Process Unspecified. EDMS 00:59 CT Chest W/ Con In Process Unspecified. EDMS 01:58 No provider procedures requiring assistance completed. IV discontinued, intact, tw5 bleeding controlled, No redness/swelling at site. Pressure dressing applied. 01:58 Strep swab sent to lab. tw 01:59 Arm band placed on. tw Administered Medications: 00:25 Drug: diphenhydrAMINE 25 mg Route: IVP; Site: left antecubital; tw5 00:55 Follow up: Response: No adverse reaction tw 00:25 Drug: Pepcid (famotidine) 20 mg Route: IVP; Site: left antecubital; tw 00:55 Follow up: Response: No adverse reaction Outcome: 01:45 Discharge ordered by MD. flowers 01:59 Discharged to home ambulatory. tw 01:59 Condition: good 01:59 Discharge instructions given to patient, Instructed on discharge instructions, follow up and referral plans. medication usage, Demonstrated understanding of instructions, follow-up care, medications, Prescriptions given X 1. 01:59 Patient left the ED. tw5 Signatures: Dispatcher [employer] EDMichael Leone PA PA jmm Gomez, Alice ag3 Blessing Savage df1 Kiarra Morrison tw5 Corrections: (The following items were deleted from the chart) 00:21 00:13 111.13 kg; Height 6 ft. 3 in.; BMI: 30.6; Pain 0/10; tw5 tw5
--- NOTE | 2021-01-27 01:46 | EDPHYS ---
Physician Documentation [facility] Name: Foster Perry Age: 45 yrs Sex: Male : 1975 Arrival Date: 01/27/2021 Time: 00:06 Bed 7 Private MD: ED Physician Roshan Berry HPI: 01/27 00:12 This 45 yrs old Male presents to ER via Ambulatory with complaints of jmm Breathing Difficulty, Rash. 00:12 The patient has shortness of breath at rest. Onset: The symptoms/episode began/occurred jmm gradually, 1 month(s) ago. Duration: The symptoms are continuous. The patient's shortness of breath is aggravated by supine position, is alleviated by elevating head. Associated signs and symptoms: Pertinent negatives: non-productive cough, productive cough, fever, loss of consciousness, nausea, numbness in extremities, visual changes, vomiting. The patient has not experienced similar symptoms in the past. This is a 45-year-old male with a history of diabetes mellitus, hypothyroidism, ACS, coronary artery disease the presents emerge department with complaints of progressively worsening shortness of breath over the past month. Patient states symptoms are worse with lying down. patient describes it as a swelling sensation at the base of his throat. Historical: - Allergies: 00:14 No Known Allergies; tw5 - Home Meds: 00:14 Temitope Chewable Aspirin 81 mg oral chew 1 tab once daily [Active]; Tirosint 150 mcg oral tw5 cap 1 cap once daily for hypothyroidism [Active]; lisinopril 10 mg Oral tab 1 tab once daily [Active]; pramipexole 0.25 mg oral tab 1 tab [Active]; repatha 140 every other week [Active]; Zyrtec 10 mg Oral tab 1 tab once daily [Active]; testosterone 10 mg 1 shot a week [Active]; - PMHx: 00:14 Diabetes - NIDDM; Enlarged Heart; Hypothyroidism; MA; heart stents x 2; tw5 - PSHx: 00:14 right shoulder; tw5 - Immunization history:: Client reports receiving the 2nd dose of the Covid vaccine, Flu vaccine is up to date. - Social history:: Smoking status: Patient denies any tobacco usage or history of. ROS: 00:12 Constitutional: Negative for fever, chills, and weight loss. jmm 00:12 ENT: Positive for sore throat. 00:12 Respiratory: Positive for shortness of breath. 00:12 All other systems are negative. Exam: 00:12 Constitutional: This is a well developed, well nourished patient who is awake, alert, jmm and in no acute distress. Head/Face: atraumatic. Eyes: EOMI, no conjunctival erythema appreciated 00:12 Neck: Trachea midline, Supple Chest/axilla: Normal chest wall appearance and motion. Cardiovascular: Regular rate and rhythm. No edema appreciated Respiratory: Normal respirations, no respiratory distress appreciated Abdomen/GI: Non distended, soft Back: Normal ROM Skin: General appearance color normal MS/ Extremity: Moves all extremities, no obvious deformities appreciated, no edema noted to the lower extremities Neuro: Awake and alert, normal gait Psych: Behavior is normal, Mood is normal, Patient is cooperative and pleasant 00:12 ENT: Posterior pharynx: erythema, that is mild. Vital Signs: 00:13 BP 166 / 84; Pulse 91; Resp 18; Pulse Ox 100% on R/A; Weight 111.13 kg; Height 6 ft. 3 tw5 in. (190.50 cm); Pain 0/10; 00:54 BP 150 / 97; Pulse 85; Resp 20; Pulse Ox 96% on R/A; Pain 0/10; tw5 01:58 BP 143 / 81; Pulse 80; Resp 20; Temp 98.2; Pulse Ox 100% on R/A; Pain 0/10; tw5 00:13 Body Mass Index 30.62 (111.13 kg, 190.50 cm) tw5 MDM: 00:12 Patient medically screened. [facility] 01:41 Data reviewed: vital signs, nurses notes. Counseling: I had a detailed discussion with [facility] the patient and/or guardian regarding: the historical points, exam findings, and any diagnostic results supporting the discharge/admit diagnosis, lab results, radiology results, the need for outpatient follow up, to return to the emergency department if symptoms worsen or persist or if there are any questions or concerns that arise at home. ED course: Patient is alert nontoxic in appearance in the ED. CT reveals large tonsils. Will treat with oral antibiotics and advised to follow-up with ENT. Patient understood agrees plan of care.. 01/27 00:13 Order name: Basic Metabolic Panel [facility] 01/27 00:13 Order name: CBC with Diff [facility] 01/27 00:13 Order name: LFT's; Complete Time: 01: [facility] 01/27 00:13 Order name: Magnesium; Complete Time: 01: [facility] 01/27 00:13 Order name: NT PRO-BNP; Complete Time: 01:13 [facility] 01/27 00:13 Order name: PT-INR; Complete Time: 01: [facility] 01/27 00:13 Order name: Troponin (emerg Dept Use Only); Complete Time: 01: [facility] 01/27 00:13 Order name: Basic Metabolic Panel; Complete Time: 01: [facility] 01/27 00:13 Order name: CBC with Automated Diff; Complete Time: 01: [facility] 01/27 00:23 Order name: CT Soft Tissue Neck W/contr [facility] 01/27 00:23 Order name: CT Chest W/ Con [facility] 01/27 01:46 Order name: Strep [facility] 01/27 00:13 Order name: EKG; Complete Time: 00:14 [facility] 01/27 00:13 Order name: Cardiac monitoring; Complete Time: 00:24 [facility] 01/27 00:13 Order name: EKG - Nurse/Tech; Complete Time: 00:40 [facility] 01/27 00:13 Order name: IV Saline Lock; Complete Time: 00:25 [facility] 01/27 00:13 Order name: Labs collected and sent; Complete Time: 00:25 [facility] 01/27 00:13 Order name: O2 Per Protocol; Complete Time: 00:25 [facility] 01/27 00:13 Order name: O2 Sat Monitoring; Complete Time: 00:25 [facility] 01/27 00:36 Order name: Chest Single View XRAY ds4 Administered Medications: 00:25 Drug: diphenhydrAMINE 25 mg Route: IVP; Site: left antecubital; tw5 00:55 Follow up: Response: No adverse reaction tw5 00:25 Drug: Pepcid (famotidine) 20 mg Route: IVP; Site: left antecubital; tw5 00:55 Follow up: Response: No adverse reaction tw5 Disposition: 02:24 Co-signature as Attending Physician, Roshan Berry MD I agree with the assessment and rn plan of care. PA/CHIEF RELAY TESTER's history reviewed, patient interviewed, and examined. HPI: 45-year-old male presents with difficulty swallowing and breathing when laying supine. Denies trauma. Denies fever. Denies weight loss. States really only happens at night when laying on his back. My personal exam of patient reveals: 45-year-old in no acute distress. Reproducible symptoms when laying patient supine. No crepitus or masses palpated. No abdominal tenderness. No labored respirations. I agree with assessment and care plan and confirm the diagnosis (es) above. Disposition Summary: 01/27/21 01:45 Discharge Ordered Location: Home [facility] Condition: Stable [facility] Diagnosis - Acute tonsillitis, unspecified [facility] Followup: [facility] - With: Private Physician - When: 2 - 3 days - Reason: Recheck today's complaints, Continuance of care, Re-evaluation by your physician Discharge Instructions: - Discharge Summary Sheet [facility] - Tonsillitis [facility] Forms: - Medication Reconciliation Form [facility] - Thank You Letter [facility] - Antibiotic Education [facility] - Prescription Opioid Use [facility] Prescriptions: - Amoxicillin 875 mg Oral Tablet - take 1 tablet by ORAL route every 12 hours for 10 days; 20 tablet; Refills: 0, [facility] Product Selection Permitted Signatures: Dispatcher [employer] EDMS Michael Dunlap PA PA Roshan Andrews MD MD rn Wood, Tiffany tw5 Corrections: (The following items were deleted from the chart) 00:43 00:14 Neck Soft Tissue+RAD.RAD.BRZ ordered. EDMS EDMS 00:44 00:14 Chest Single View+RAD.RAD.BRZ ordered. EDMS EDMS
[2021-01-27 02:09] VITALS: BP 143/81; TEMP 98.2; O2SAT 100
--- NOTE | 2021-01-27 08:44 | RAD REPORT ---
EXAM DESCRIPTION: RAD - Chest Single View - 01/27/2021 12:42 am CLINICAL HISTORY: DYSPNEA Chest pain. COMPARISON: Chest Single View dated 07/28/2019; CHEST SINGLE VIEW dated 02/06/2012 FINDINGS: Portable technique limits examination quality. The lungs are grossly clear. The heart is normal in size. No displaced fractures. IMPRESSION: No acute intrathoracic process suspected.
--- NOTE | 2021-01-27 11:48 | RAD REPORT ---
EXAM DESCRIPTION: CT CHEST WITH IV CONTRAST on 01/27/2021 12:23 AM POLE CLASSIFIER CLINICAL HISTORY: Sob COMPARISON: None. TECHNIQUE: CT CHEST WITH IV CONTRAST on 01/27/2021 12:23 AM POLE CLASSIFIER. MIPS reconstructions were generated. This exam was performed according to our departmental dose-optimization program, which includes autom ated exposure control, adjustment of the mA and/or kV according to patient size and/or use of iterati ve reconstruction technique. MIP images were generated. FINDINGS: Thoracic aorta is normal in course and caliber without aneurysm or dissection. Pulmonary a rteries are adequately opacified without acute or chronic filling defects. The heart is normal in size. There is no pericardial effusion. Intrathoracic lymph nodes are not enla rged. There is no pleural effusion, pleural thickening or pneumothorax. Central airways are patent. Lungs a re clear with no consolidation, mass or interstitial lung disease. There are no acute abnormalities within the limited images of the upper abdomen. There are no acute osseous findings. No suspicious bony lesions. IMPRESSION: Clear lungs. Electronically signed by: Herbert Kumari MD 01/27/2021 1:25 AM POLE CLASSIFIER Due to temporary technical issues with the PACS/Fluency reporting system, reports are being signed by the in house radiologist without review as a courtesy to ensure prompt reporting. The interpreting r adiologist is fully responsible for the content of the report.
--- NOTE | 2021-01-27 11:55 | RAD REPORT ---
EXAM DESCRIPTION: CT NECK WITH IV CONTRAST CLINICAL HISTORY: Sob COMPARISON: None. TECHNIQUE: CT NECK WITH IV CONTRAST on 01/27/2021 12:23 AM LUNG SPLITTER This exam was performed according to our departmental dose-optimization program, which includes autom ated exposure control, adjustment of the mA and/or kV according to patient size and/or use of iterati ve reconstruction technique. FINDINGS: The visualized portions of the brain and orbits are normal. The oral cavity, oropharynx and nasopharynx are normal. The parapharyngeal fat planes are preserved . There is mild fullness of the bilateral palatine tonsils. There is no focal peritonsillar fluid colle ction. The parotid and submandibular glands are grossly within normal limits. No intrinsic mass lesions are seen. . The paranasal sinuses and mastoid air cells are clear. No definite pathologically enlarged lymph nodes are identified. The thyroid gland is normal in size and configuration. The thoracic inlet is normal. The superior mediastinum and lung apices are normal. No acute osseous abnormalities are identified. IMPRESSION: Possible tonsillitis without peritonsillar abscess. Electronically signed by: Herbert Kumari MD 01/27/2021 1:22 AM LUNG SPLITTER Due to temporary technical issues with the PACS/Fluency reporting system, reports are being signed by the in house radiologist without review as a courtesy to ensure prompt reporting. The interpreting r adiologist is fully responsible for the content of the report.
--- NOTE | 2021-01-28 11:24 | EKG ---
Test Date: 2021-01-27 Test Time: 00:35:07 [place] Supervisor: MEASUREMENT RESULTS: Intervals: Rate: 80 MO: 160 QRSD: 86 QT: 344 QTc: 396 [place]: P: 51 MO: 160 QRS: 17 T: 21 INTERPRETIVE STATEMENTS: Normal sinus rhythm Normal ECG Compared to ECG 07/28/2019 18:41:03 Fusion complex(es) no longer present ST (T wave) deviation no longer present Possible ischemia no longer present Electronically Signed On 01-28-21 11:20:42 AIR DEFENSE CONTROL OFFICER by Daniel Atkinson
--- OUTSIDE RECORDS SUMMARY | 2021-01-31 17:35 | XMS REPORT | Continuity of Care Document ---
:1975 Author Organization [facility] t Address [address] [place] [address] Care Team Providers Name Role Phone Evert_Juan Attending Clinician Unavailable CHATA SIMPSON Attending Clinician Unavailable Kristina Admitting Clinician Unavailable Payers Payer Name Policy Type Policy Number Effective Date Expiration Date S [place] [id number] 2018 00:[place]00 [place] 2 [id number] 2020 00:00:00 [place] [id number] 2018 00:00:00 Problems Condition Condition Condition Status Onset Resolution Last Treating Co mments Source Name Details Category Date Date Treatment Clinician Date History of History of Problem Active [facility] myocardial Myocardial 4-19 Fa olamide infarction Infarction 00:00: Pr actic 00 e Type 1 Type 1 Problem Active [facility] diabetes Diabetes 4-14 Family mellitus Mellitus 00:00: Practi c 00 e Body mass Body Mass Problem Active Derik elijah index 30+ Index 30+ 4-14 Fami ly - obesity - Obesity 00:00: Prac tic 00 e 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 5-20 Family coronary Coronary 00:00: Practi c artery Artery 00 e without without angina Angina pectoris Pectoris Clinical Clinical Problem Active [facility] finding Finding -20 Family 00:00: Practic 00 e Allergic Allergic Problem Active [facility] rhinitis Rhinitis 9- Family 00:00: Practic 00 e Numbness Numbness Problem Active 2017-03 [facility] and and 2-18 Family tingling Tingling 00:00: Practi c sensation Sensation 00 e of skin of Skin Tingling Tingling Problem Active 2017-03 [facility] of skin of Skin 2-18 Family 00:00: Practic 00 e Obesity Obesity Problem Active [facility] 7- Family 00:00: Practic 00 e Insomnia Insomnia Problem Active [facility] - Family 00:00: Practic 00 e Essential Essential Problem Active Derik nava hypertensi Hypertensi 10-13 Dipesh quiñonez on on 00:00: Practic 00 e Hypertensi Hypertensi Problem Active [facility] ve ve 10-13 Family disorder Disorder 00:00: Practi c 00 e Clinical Clinical Problem Active [facility] finding Finding 10-13 Family 00:00: Practic 00 e General General Problem Active [facility] finding of Finding of 10-13 Dipesh quiñonez observatio Observatio 00:00: Pr actic n of n of 00 e patient Patient Finding Finding Problem Active [facility] related to Related to 10-13 Dipesh quiñonez sleep Sleep 00:00: Practic 00 e Hypothyroi Hypothyroi Problem Active [facility] dism dism 10-13 Family 00:00: Practic 00 e Hyperlipid Hyperlipid Problem Active [facility] emia emia 10-13 Family 00:00: Practic 00 e Allergies, Adverse Reactions, Alerts Allergy Allergy Status Severity Reaction(s) Onset Inactive Treating Comm ents Source Name Type Date Date Clinician NO KNOWN Drug Active [facility] ALLERGIE Class it[facility] of [facility] Social History Smoking Status Start Date Stop Date Source Former Smoker [facility] Medications Ordered Filled Start Stop Current Ordering Indication Dosage Frequency Signature Comments Components Source Medication Medication Date Date Medication? Clinician (SIG) Name Name aspirin 81 aspirin 81 No 1 Q1D aspirin 81 [facility] mg mg mg Family tablet,scarlet tablet,scarlet tablet,del Practic yed release yed release ayed e Take 1 Take 1 release tablet tablet Take 1 every day every day tablet by oral by oral every day route. route. by oral route. azelastine- azelastine- No azelastine [facility] fluticasone fluticasone -fluticaso Family 137 mcg-50 137 mcg-50 ne 137 P ractic mcg/spray mcg/spray mcg-50 e nasal spray nasal spray mcg/spray INSTILL 1 INSTILL 1 nasal SPRAY SPRAY spray NASALLY NASALLY INSTILL 1 TWICE A DAY TWICE A DAY SPRAY NASALLY TWICE A DAY Contour Contour No Contour [facility] Next Test Next Test Next Test Family Strips TEST Strips TEST Strips Practic 6 TIMES A 6 TIMES A TEST 6 e DAY IN DAY IN TIMES A VITRO 90 VITRO 90 DAY IN DAYS DAYS VITRO 90 DAYS eszopiclone eszopiclone No 1 Q1D eszopiclon [facility] 2 mg tablet 2 mg tablet e 2 mg Family Take 1 Take 1 tablet Practic tablet tablet Take 1 e every day every day tablet by oral by oral every day route at route at by oral bedtime. bedtime. route at bedtime. hello heart hello heart No hello [facility] kit kit heart kit Family Practic e hydrocortis hydrocortis No hydrocorti [facility] one 2.5 % one 2.5 % sone 2.5 % [facility] topical topical topical Practi c cream APPLY cream APPLY cream e TWICE A DAY TWICE A DAY APPLY TO FACE TO FACE TWICE A DAY TO FACE Invokana Invokana No 1 Q1D Invokana Derik elijah 300 mg 300 mg 300 mg Family tablet Take tablet Take tablet Practic 1 tablet 1 tablet Take 1 e every day every day tablet by oral by oral every day route as route as by oral directed directed route as for 90 for 90 directed days. days. for 90 days. Jardiance Jardiance No Jardiance [facility] 25 mg 25 mg 25 mg Family tablet TAKE tablet TAKE tablet Practic 1 TABLET BY 1 TABLET BY TAKE 1 e MOUTH EVERY MOUTH EVERY TABLET BY DAY DAY MOUTH EVERY DAY lisinopril lisinopril No lisinopril [facility] 10 mg 10 mg 10 mg Family tablet Take tablet Take tablet Practic 1 tablet 1 tablet Take 1 e every day every day tablet by oral by oral every day route as route as by oral directed directed route as for 90 for 90 directed days. days. for 90 days. Livalo 1 mg Livalo 1 mg No 1 Q1D Livalo 1 [facility] tablet Take tablet Take mg tablet Family 1 tablet 1 tablet Take 1 Pract ic every day every day tablet e by oral by oral every day route in route in by oral the the route in evening. evening. the evening. mometasone mometasone No [facility] [facility] 0.1 % 0.1 % 0.1 % [facility] topical topical topical Practi c solution solution solution e APPLY TO APPLY TO APPLY TO EARS TWICE EARS TWICE EARS TWICE A DAY A DAY A DAY Novolog Novolog No Novolog [facility] U-100 U-100 U-100 Family Insulin Insulin Insulin Practi c aspart 100 aspart 100 aspart 100 e unit/mL unit/mL unit/mL subcutaneou subcutaneou subcutaneo s solution s solution us USE WITH USE WITH solution INSULIN INSULIN USE WITH PUMP TDD PUMP TDD INSULIN 120 UNITS 120 UNITS PUMP TDD DAILY UNDER DAILY UNDER 120 UNITS THE SKIN THE SKIN DAILY UNDER THE SKIN pramipexole pramipexole No [facility] 0.25 mg 0.25 mg e 0.25 mg Fami ly tablet TAKE tablet TAKE tablet Practic 1 TABLET BY 1 TABLET BY TAKE 1 e MOUTH TWICE MOUTH TWICE TABLET BY A DAY A DAY MOUTH TWICE A DAY [facility] n - Prior on - Prior Family Authorizati Authorizati Authorizat Practic on Request on Request ion e Request athlevi Cotteratha No Repatha [facility] SureClick SureClick SureClick Family 140 mg/mL 140 mg/mL 140 mg/mL Practic subcutaneou subcutaneou subcutaneo e s pen s pen us pen injector injector injector Inject 1 mL Inject 1 mL Inject 1 every 2 every 2 mL every 2 weeks by weeks by weeks by subcutaneou subcutaneou subcutaneo s route as s route as us route directed. directed. as directed. Repatha atha No 1mL Q2W Repatha Christianne e Syringe 140 Syringe 140 Syringe Family mg/mL mg/mL 140 mg/mL Practic subcutaneou subcutaneou subcutaneo e s syringe s syringe us syringe Inject 1 mL Inject 1 mL Inject 1 every 2 every 2 mL every 2 weeks by weeks by weeks by subcutaneou subcutaneou subcutaneo s route. s route. us route. Tirosint Tirosint No Tirosint Derik elijah 150 mcg 150 mcg 150 mcg Family capsule capsule capsule Practi c TAKE BY TAKE BY TAKE BY e MOUTH 1 MOUTH 1 MOUTH 1 CAPSULE IN CAPSULE IN CAPSULE IN THE MORNING THE MORNING THE ON AN EMPTY ON AN EMPTY MORNING ON STOMACH STOMACH AN EMPTY ONCE A DAY ONCE A DAY STOMACH ONCE A DAY Immunizations Ordered Immunization Filled Immunization Date Status Commen ts Source Name Name COVID-19, mRNA, COVID-19, mRNA, 2020-05-19 Completed [facility] LNP-S, PF, 30 LNP-S, PF, 30 00:00:00 Practice mcg/0.3 mL dose mcg/0.3 mL dose influenza, influenza, 2019-11-20 Completed [facility] injectable, injectable, 00:00:00 Practice quadrivalent quadrivalent tetanus toxoid, tetanus toxoid, 2014-03-[address] [facility] unspecified unspecified 00:00:00 Practice formulation formulation Vital Signs Vital Name Observation Time Observation Value Comments Source Height 2020-09-29 00:00:00 75 [in_i] [facility] Practice BMI (Body Mass 2020-09-29 00:00:00 29.5 kg/m2 [facility] Index) Practice Body Weight 2020-09-29 00:00:00 236 [lb_av] [facility] Practice BP Diastolic 2020-07-02 00:00:00 77 mm[Hg] [facility] Practice Height 2020-07-02 00:00:00 75 [in_i] [facility] Practice BMI (Body Mass 2020-07-02 00:00:00 30.2 kg/m2 [facility] Index) Practice BP Systolic 2020-07-02 00:00:00 147 mm[Hg] [facility] Practice Body Weight 2020-07-02 00:00:00 242 [lb_av] [facility] Practice BP Diastolic 2020-03-31 00:00:00 87 mm[Hg] [facility] Practice Height 2020-03-31 00:00:00 75 [in_i] [facility] Practice BMI (Body Mass 2020-03-31 00:00:00 30.8 kg/m2 [facility] Index) Practice BP Systolic 2020-03-31 00:00:00 153 mm[Hg] [facility] Practice Body Weight 2020-03-31 00:00:00 246.4 [lb_av] [facility] Practice Height 2019-12-26 00:00:00 75 [in_i] [facility] Practice BMI (Body Mass 2019-12-26 00:00:00 29.4 kg/m2 [facility] Index) Practice Body Weight 2019-12-26 00:00:00 235 [lb_av] [facility] Practice Procedures Procedure Date / Time Performed Performing Clinician Sour e Placement of Stent in 2019-07-20 00:00:00 [facility] Practice Procedure on Shoulder [facility] Fa olamide Practice Operative Procedure on [facility] F amily Knee Practice Encounters Start End Encounter Admission Attending Care Care Encounter Source Date/Time Date/Time Type Type Clinicians Facility Department ID 2021-01-31 Outpatient Daniel_T VFP VFP [id number] [facility] 07:28:31 [id number] Family Practic e 2021-01-31 Outpatient Daniel_T VFP VFP [id number] [facility] 06:03:31 [id number] Family Practic e 2021-01-30 Outpatient Daniel_T VFP VFP [id number] [facility] 16:54:13 [id number] Family Practic e 2021-01-30 Outpatient Daniel_T VFP VFP [id number] [facility] 16:46:54 [id number] Family Practic e 2021-01-30 Outpatient Daniel_T VFP VFP [id number] [facility] 15:58:03 [id number] Family Practic e 2020-10-01 2020-10-01 Outpatient VERNA SIMPSON [id number] [facility] 00:00:00 00:00:00 CHATA alba 2020-09-30 2020-09-30 Outpatient VERNA SIMPSON [id number] [facility] 10:00:00 10:00:00 CHATA alba 2020-09-29 2020-09-29 [place]io [facility]FP [place] - [id number] [facility] 00:00:00 00:00:00 Isabella LoydGloria MD: [id number] Marcela enriquez [facility] [address], [place] [address] , Ph. 2020-07-02 2020-07-02 [place] [facility]FP [place] - [id number] [facility] 00:00:00 00:00:00 Isabella LoydGloria MD: [id number] Marcela enriquez [facility] [address], [place] [address] , Ph. 2020-03-31 2020-03-31 [place]io [facility]FP [place] - [id number] [facility] 00:00:00 00:00:00 Isabella LoydGloria MD: [id number] CAITIE_NASEEM_Torey enriquez [facility], [address], [place] [address] , Ph. 2020-03-24 2020-03-24 Outpatient R [facility] [id number] Univers 08:45:00 08:45:00 [id number] [facility] 2020-03-24 2020-03-24 Outpatient R [facility] [id number] Univers 08:45:00 08:45:00 [facility] 2019-12-26 2019-12-26 Tiburcio [facility] [place] - [id number] [facility] 00:00:00 00:00:00 Isabella LoydGloria MD: [id number] CAITIE_NASEEM_Gaurav enriquez [facility], [address], [place] [address] , Ph. Results This patient has no known results.
== END 2021-01-27 01:59 | disposition home or self-care (01) ==
LOC: ER 00:02
DX: J03.90 Acute tonsillitis, unspecified (principal); E11.9 Type 2 diabetes mellitus without complications; E03.9 Hypothyroidism, unspecified; I51.7 Cardiomegaly
CPT/HCPCS: 93005; 85025; 80048; 36415; 83735; 85610; 82565; 80076; 87081; 84484; 83880; 71260; 70491; 71045; 96375; 96374; 99285; Q9967; J1200

== ENCOUNTER 2024-01-02 12:06 | Day surgery (SDC) | payer BC ==
--- NOTE | 2023-12-30 14:35 | RAD REPORT ---
Procedure: Chest Pa And Lat (2 Views) History: Hypertension. Preop for cardiac catheterization Comparison: 2021 Findings: The lungs appear clear of acute infiltrate. No significant pleural effusion noted. The heart is normal size. IMPRESSION: No acute abnormality is displayed.
[2023-12-30 14:43] LABS: Anion Gap 8.6 mEq/L (5.0-15.0); Potassium 4.6 mEq/L (3.5-5.1)
[2023-12-30 14:57] LABS: PT Prothrombin Time 10.7 SECONDS (9.4-12.5); PTT, Activated Partial Thromb 33.3 SECONDS (24.3-36.9); Protime INR 0.95
[2024-01-02] MEDS: NA CHLORIDE 0.9% 500 ML ONE (12:52)
[2024-01-02] MEDS ORDERED: HEPA 1000U/500MLS 2,000 UNIT/1,000 ML BAG IV ONE (13:27)
[2024-01-02] MEDS ORDERED: ASPIRIN 325 MG TAB ONE (13:28)
[2024-01-02] MEDS ORDERED: ATROPINE SULF 1 MG/10 ML SYR IV ONE (13:28)
[2024-01-02] MEDS ORDERED: HEPARIN 10,000 UNIT/10 ML VIAL IV ONE (13:28)
[2024-01-02] MEDS ORDERED: HEPARIN 5000 UNIT/ML 1 ML VIAL ONE (13:28)
[2024-01-02] MEDS ORDERED: LIDOCAINE 1% 20 ML MDV ONE (13:28)
[2024-01-02] MEDS ORDERED: CLOPIDOGREL 75 MG TABLET ONE (13:28)
[2024-01-02] MEDS ORDERED: TICAGRELOR 90 MG TABLET PO ONE (13:28)
[2024-01-02] MEDS ORDERED: VERAPAMIL HCL 10 MG/4 ML VIAL IV ONE (13:29)
[2024-01-02] MEDS ORDERED: FENTANYL CITR 100 MCG/2 ML ONE (13:50)
[2024-01-02] MEDS ORDERED: MIDAZOLAM HCL 2 MG/2 ML INJ ONE (13:51)
[2024-01-02] MEDS ORDERED: FAMOTIDINE 20 MG TAB ONE (14:15)
[2024-01-02] MEDS ORDERED: ASPIRIN 81 MG CHEWABLE TABLET ONE ×2 (14:27→14:28)
[2024-01-02 17:58] VITALS: BP 133/77; O2SAT 99
--- NOTE | 2024-01-04 17:04 | OP ---
Date of Procedure: 01/02/2024 Surgeon: GURINDER LOUISE Procedures Performed: 1.Selective coronary angiogram. 2.Left heart catheterization. 3.Percutaneous coronary intervention of severe proximal left circumflex stenosis. I used 3.5 x 16 m m Synergy drug-eluting stent post dilated using 3.5 x 8 mm NC balloon. Indication: Unstable angina. Access: Right radial artery 6-Dutch closed with TR band. Complications: None. Bleeding: Less than 50 mL. Anesthesia: Total sedation time was 1 hour. Description Of Procedure: After risks, benefits, and alternatives were explained, patient agreed to procedure and signed informed consent. The patient was brought into cardiac catheterization laborato , prepped and draped in sterile fashion. Then, I accessed the right radial artery using pediatric micropuncture kit, placed 6-Dutch Slender sheath and took 5-Dutch [place] 4 catheter over J-wire into the aortic root. Across aortic valve, measured the LVEDP. Pullback did not record any gradient. T hen, engaged the left main, took standard views, and then the RCA and took standard views and then ga ve systemic heparin to assure ACT level above 250 throughout the procedure and then took EBU 3.5 guid e over J-wire into the aortic root through the radial access, engaged left main, took Runthrough wire into the left main, left circumflex, placed it distally and using a 3.0 balloon to high pressure , lesion was pre-dilated and expanded very well and then I placed a 3.5 x 60 mm Synergy drug-eluting stent and postdilated using a 3.5 x 8 mm NC balloon. Excellent results at the end. Wire was removed . Final angiogram was satisfactory and then removed the guide and the sheath, and TR band was used f or closure with good hemostasis. Findings: 1.Left main: Large and normal. 2.LAD: Proximal segment is normal. Diagonal branch has proximal 40%, mid LAD has 40% stenosis. Di agonal 2 branch has proximal 30%, then the LAD has mid to distal 20% stenosis and then luminal irregu larities. 3.Left circumflex: Large vessel with proximal 90% stenosis, which is a culprit status post successf ul PCI as above then widely patent stent. Distal to the stent, the left circ has 30% stenosis focall y. OM branch 1 is very small, has an ostial 80% stenosis, but it is likely a plaque shift from the o ld stent. 4.RCA: It is large and dominant with proximal to mid 40% to 50% stenosis and the PDA has proximal 4 0% stenosis. 5.LVEDP is elevated at 20 mmHg. Conclusion: 1.Severe left circumflex stenosis, status post successful PCI as above. 2.Moderate coronary artery disease elsewhere. Recommendation: Dual antiplatelet therapy, high-dose statin, and follow up with me in the office in 2 weeks post discharge. SR/MODL Voice ID: [id number] Report ID: [id number]
--- NOTE | 2024-01-05 12:16 | EKG ---
Test Date: 2023-12-30 Test Time: 14:11:30 Food Stylist: ARLETH MEASUREMENT RESULTS: Intervals: Rate: 92 IN: 148 QRSD: 92 QT: 332 QTc: 410 [place]: P: 66 IN: 148 QRS: 60 T: 59 INTERPRETIVE STATEMENTS: Normal sinus rhythm Normal ECG Compared to ECG 01/27/2021 00:35:07 No significant changes Electronically Signed On 01-05-24 12:01:09 CDT by Garry Aviles
== END 2024-01-02 17:35 | disposition home or self-care (01) ==
LOC: CCL 12:06
PROVIDERS: ATTEND Internal Medicine
DX: I25.110 Atherosclerotic heart disease of native coronary artery with unstable angina pectoris (principal); I73.9 Peripheral vascular disease, unspecified; I10 Essential (primary) hypertension; E11.9 Type 2 diabetes mellitus without complications; E78.5 Hyperlipidemia, unspecified; I25.2 Old myocardial infarction; Z95.5 Presence of coronary angioplasty implant and graft; Z87.891 Personal history of nicotine dependence; Z79.82 Long term (current) use of aspirin; Z79.899 Other long term (current) drug therapy; Z82.49 Family history of ischemic heart disease and other diseases of the circulatory system
CPT/HCPCS: 93005; 80048; 36415; 85610; 82947; 85730; 71046; 92928; 93458; 76937; C1893; Q9967; C1725; J1644; J2001; J2250; J3010; J7040; 85347; 99152; 99153; J0461